=== PATIENT | female | born 1955 | race Two or more races ===

== ENCOUNTER 2017-05-12 20:53 | Emergency (ER) | payer MEDICAID ==
[~2017-05-12] VITALS: Ht 175.3 cm; Wt 88.5 kg
[2017-05-12] MEDS ORDERED: METO50TA3 PO (21:13)
[2017-05-12] MEDS ORDERED: NITR1PAT TD (21:13)
[2017-05-12] MEDS ORDERED: METF10002 PO (21:13)
[2017-05-12] MEDS ORDERED: IV NORMAL SALINE 1000 ML BAG IV ONE (21:45)
[2017-05-12] MEDS ORDERED: PIPERACILLIN SODIUM/TAZOBACTAM 3.375 G in IV DEXTROSE 5% 50 ML IV ONE (21:45)
[2017-05-12] MEDS ORDERED: VANCOMYCIN IV 1,000 MG in IV DEXTROSE 5% 250 ML IV ONE (21:45)
[2017-05-12] MEDS ORDERED: KETOROLAC TROMETHAMINE 15 MG INJ IVP ONE (21:45)
--- NOTE | 2017-05-12 22:00 | NUR ---
Pt to room, c/o wound to right inner ankle with redness, swelling and pain with ROM. Pt seen by . IV established. Labs drawn and sent. Pt resting in position of comfort for self
[2017-05-12] MEDS ORDERED: TDAP DIPH,PERTUSS,TET VAC/PF 0.5 ML DISP.SYRIN IM ONE ×2 (22:15→23:01)
[2017-05-12 22:16] LABS: BASOPHILS # (AUTO) 0.1 K/uL (0.0-8.0); BASOPHILS % (AUTO) 0.8 % (0.0-2.0); EOSINOPHILS # (AUTO) 0.3 K/uL (0.0-0.7); EOSINOPHILS % (AUTO) 2.4 % (0.0-7.0); HEMATOCRIT 36.2 % (37-47); HEMOGLOBIN 12.3 G/DL (12.0-16.0); LYMPHOCYTES # (AUTO) 4.3 K/UL (0.8-4.8); LYMPHOCYTES % (AUTO) 42.1 % (20.5-51.5); MEAN CORPUSCULAR HEMOGLOBIN 30.5 UUG (27.0-31.0); MEAN CORPUSCULAR HGB CONC 34 g/dL (32.0-37.0); MEAN CORPUSCULAR VOLUME 89.8 FL (81.0-99.0); MONOCYTES # (AUTO) 1.4 K/UL (0.1-1.30); MONOCYTES % (AUTO) 12.9 % (0.0-11.0); NEUTROPHILS # (AUTO) 4.4 K/UL (1.8-8.9); NEUTROPHILS % (AUTO) 41.8 % (38.5-71.5); PLATELET COUNT (AUTO) 412 K/UL (150-450); RED BLOOD CELL COUNT(AUTO) 4.03 MIL/UL (4.2-5.4); WHITE BLOOD COUNT (AUTO) 10.5 K/UL (4.0-11.2)
--- NOTE | 2017-05-12 22:20 | NUR ---
First ABT infusion started, will monitor for any adverse reactions.
[2017-05-12 22:26] LABS: CREATININE 0.8 mg/dL (0.6-1.3)
[2017-05-12] MEDS ORDERED: KETOROLAC TROMETHAMINE 15 MG INJ ONE (22:26)
[2017-05-12] MEDS ORDERED: PIPERACILLIN/TAZOBACTAM/D5W 50 ML IV ONE (22:26)
[2017-05-12 22:39] LABS: BILIRUBIN,DIRECT 0.1 mg/dL (0.0-0.2); BILIRUBIN,TOTAL 0.3 mg/dL (0.2-1.0); TOTAL PROTEIN, SERUM 7.9 g/dL (6.4-8.2)
--- NOTE | 2017-05-12 23:00 | NUR ---
First ABT infusion completed, no adverse reactions noted. Second ABT infusion started and infusing via pump.
[2017-05-12] MEDS ORDERED: VANCOMYCIN IV 200 ML ONE (23:01)
--- NOTE | 2017-05-13 00:40 | NUR ---
Second ABT infusion completed, no adverse reactions noted. 2L of fluid bolus completed. MD aware. Drsg applied to right ankle. Pos CMS s/p application. Pt stable for discharge per MD. IV dc'd, catheter intact. Drsg applied, no problems noted to site. Pt and family given ACI. Both verbalized understanding of dc instructions. Pt ambulated out of er with steady gait.
[2017-05-13 00:43] VITALS: BP 150/84
== END 2017-05-13 00:43 | disposition home or self-care (01) ==
LOC: ER 20:58
DX: L03.115 Cellulitis of right lower limb (principal); I10 Essential (primary) hypertension; E11.9 Type 2 diabetes mellitus without complications; E03.9 Hypothyroidism, unspecified
CPT/HCPCS: 70030-TC; 71010; 73590; 83605; 85025; 85730; 87040; 90715; 93005; A4663; J1885; J2543; J3370; J7030

== ENCOUNTER 2018-01-25 14:27 | Emergency (ER) | payer MEDICAID ==
[~2018-01-25] VITALS: Ht 175.3 cm; Wt 86.2 kg
[~2018-01-25 14:27] MED LIST: METF10004 PO; METO50TA16 PO; NITR1PAT TD
--- NOTE | 2018-01-25 14:58 | NUR ---
PT IS IN ROOM #2A. DR RIOS EVALUATED THE PT.
--- NOTE | 2018-01-25 18:00 | NUR ---
PT WAS D/C TO HOME. D/C INSTRUCTIONS GIVEN TO THE PT.
[2018-01-25 18:01] VITALS: BP 145/82
== END 2018-01-25 18:02 | disposition home or self-care (01) ==
LOC: ER 14:28
DX: S82.141A Displaced bicondylar fracture of right tibia, initial encounter for closed fracture (principal); I10 Essential (primary) hypertension; E11.9 Type 2 diabetes mellitus without complications; E03.9 Hypothyroidism, unspecified; Z79.84 Long term (current) use of oral hypoglycemic drugs; Z79.899 Other long term (current) drug therapy; W11.XXXA Fall on and from ladder, initial encounter; Y93.89 Activity, other specified; Y92.89 Other specified places as the place of occurrence of the external cause; Y99.8 Other external cause status
CPT/HCPCS: 73700; A4663